=== PATIENT | male | born 1985 | race Asian ===

== ENCOUNTER 2017-02-14 10:22 | Day surgery (SDC) | payer OTHER ==
[2017-02-11 10:06] VITALS: BMI 27.4
[2017-02-14] MEDS ORDERED: DEXAMETHASONE SOD PHOSPHATE/PF 10 MG/ML SDV ONE (11:38)
[2017-02-14] MEDS ORDERED: MIDAZOLAM HCL 2 MG/2 ML SINGLE DOSE VIAL ONE ×2 (11:38→12:50)
[2017-02-14] MEDS ORDERED: ROPIVACAINE HCL 0.5% 30ML VIAL ONE (11:38)
[2017-02-14] MEDS ORDERED: PROPOFOL 20 ML ONE ×3 (13:03→15:21)
[2017-02-14] MEDS ORDERED: ONDANSETRON 4 MG/2 ML VIAL ONE ×2 (13:30→16:43)
[2017-02-14] MEDS ORDERED: ceFAZolin SODIUM 1 GM VIAL ONE (13:30)
[2017-02-14] MEDS ORDERED: DEXAMETHASONE SOD PHOSPHATE 4 MG/1 ML VIAL ONE (13:30)
[2017-02-14] MEDS ORDERED: METOPROLOL TARTRATE 5 MG/5 ML VIAL ONE (13:30)
[2017-02-14] MEDS ORDERED: ePHEDrine SULFATE 50 MG/1 ML AMPULE ONE ×2 (13:52→15:30)
[2017-02-14] MEDS ORDERED: ONDANSETRON 4 MG/2 ML VIAL IVPUSH PRN (16:13)
[2017-02-14] MEDS ORDERED: oxyCODONE HCL 5 MG TABLET PO PRN ×2 (16:13)
[2017-02-14] MEDS ORDERED: PROMETHAZINE HCL 25 MG/1 ML VIAL IVPUSH PRN (16:13)
[2017-02-14] MEDS ORDERED: ONDANSETRON 4 MG/2 ML VIAL IVPUSH ONE (16:48)
--- NOTE | 2017-02-14 16:52 | OP ---
Operative Note - Note: Operative Date: 02/14/17 Pre-Operative Diagnosis: Right shoulder superior labral anterior posterior tear with bankhart lesion and instability Operation: Right shoulder arthorscopic labral repair with remplissage Post-Operative Diagnosis: Same as Pre-op Surgeon: Sav Anne Distribution Tech: Yasmin Banks Anesthesia: MAC (with block) Estimated Blood Loss (mls): 50 Operative Report Dictated: Yes
--- NOTE | 2017-02-14 16:55 | SURG ---
Surgery Access Clerk Note Access Clerk: Yasmin Banks PA-C Date of Service: 02/14/17 Diagnosis: right shoulder labral tear with bankhart lesion Procedure: right shoulder arthroscopic labral repair with remplissage I was present for the entirety of the operative procedure. For further detail, please refer to operative report. Visit type - Case Type Case Type: Scheduled Admission - Emergency Emergency Visit: No - New patient This patient is new to me today: Yes Date on this admission: 02/14/17
[2017-02-14] MEDS ORDERED: oxyCODONE HCL 5 MG TABLET ONE (17:28)
[2017-02-14 18:27] VITALS: TEMP 97.8
[2017-02-14 18:35] VITALS: BP 130/76; PULSE 125
--- NOTE | 2017-02-14 18:51 | OP ---
DATE OF OPERATION: 02/14/2017 PREOPERATIVE DIAGNOSIS: Right shoulder instability, recurrent. POSTOPERATIVE DIAGNOSIS: Right shoulder instability, recurrent. PROCEDURE: Right shoulder arthroscopy with repair of superior labrum, repair of anterior and inferior labrum, remplissage procedure. SURGEON: Terrence Stover MD PROFESSOR OF SOCIOLOGY: LENIN Chung, whose skillful assistance was necessary for the safe and timely performance of this procedure. Ms. Banks was able to help steer the camera, help provide limb positioning, assist in suture passage and fixation, and insertion of orthopedic hardware. ANESTHESIA: Regional, plus general. POSTOPERATIVE CONDITION: Stable. COMPLICATIONS: None. IMPLANTS: Arthrex 2.9-mm PushLock anchors x5 and SutureTak x2. INDICATIONS: This is a pleasant gentleman who had been suffering for years of recurrent shoulder dislocation. MRI demonstrated findings of mild glenoid bone loss, Hill-Sachs lesion, anterior/inferior labral tear. Treatment options including nonoperative management versus operative management were discussed. Operative risks were reviewed in detail including bleeding, infection, neurovascular injury, need for further surgery, postoperative pain and stiffness, recurrent instability. We discussed medical risks such as heart attack, stroke, DVT, PE, and . I addressed all the patient's questions. He voiced understanding and elected to proceed. DESCRIPTION OF PROCEDURE: The patient was brought to the operating room after administration of a regional block in the preoperative holding area. He was placed in the beach chair position, careful to pad all his bony prominences. General anesthesia was administered with LMA. The right upper extremity was then examined. There was positive anterior load and shift. Negative sulcus sign. No posterior instability. There was full range of motion. Right upper extremity was now prepped and draped in the usual sterile fashion. A preoperative dose of antibiotics was given, and the usual timeout procedure was performed. The portal sites were now marked out on the skin. The standard posterior portal was now incised with an 11 blade. The arthroscope was passed into the glenohumeral joint. Examination of the glenohumeral joint demonstrated some fraying of the cartilage surfaces on both the glenoid and humeral sides. The entire anterior labrum as nonvisualized. There was some significant fraying at the junction of the anterior labrum and the inferior labrum. The arthroscope was passed anteriorly. The subscapularis was visualized. This was intact. The biceps was visualized. This was intact without signs of tendinosis. The arthroscope was now passed back along the rotator cuff which seemed to be intact with only some mild superficial fraying. The arthroscope then fell into the Hill-Sachs defect which was significant. The arm was then passed into a position of adduction and external rotation, and the Hill-Sachs defect was seen to engage with the glenoid. The arthroscope was now brought back into the central portion of the joint. The inferior and posterior labrum was inspected, and this was seen to be stable. An anterior inferior portal was now established under spinal needle localization just proximal to the subscapularis tendon. A cannula was placed. The superior labrum was probed, and this was found to be unstable as well. The decision at this point was made to perform both an anterior-inferiorly , SLAP repair, and given the engaging Hill-Sachs lesion, a remplissage procedure. Attention was initially turned to the anterior glenoid. Utilizing an arthroscopic elevator, the anterior tissue including the capsule and labrum was freed from the anterior, inferior, and superior aspect of the glenoid rim. Utilizing a rasp as well as a 4.5-mm shaver, the bone around the glenoid was debrided down to a bleeding base. The debridement was carried out all the way from the mid-portion of the superior labrum down to the 5:30 position. With the tissue adequately liberated, a 90-degree suture passer was used to pass multiple sutures in horizontal mattress fashion from the inferior aspect utilizing the first retraction stitch and then getting it further on the inferior tissue. After the second suture was passed, these were parked in the cannula. Attention was now turned to the Hill-Sachs lesion. A second posterolateral portal was now established. This was done under spinal needle localization as well. Utilizing a shaver, as well as a bur and rasp, the Hill-Sachs was debrided down to cancellous bone. Cannula was placed in the posterolateral portal. This was placed into the subacromial space and not into the joint. Utilizing percutaneous technique, a spinal needle was used to localize. An anchor was then inserted into the most-deep portion of the defect. Sutures were retrieved out of the cannula. A second anchor was then drilled, maintaining the arm in position of maximal internal rotation, therefore light penetration to the joint surface, and an anchor was placed just lateral to the articular surface in the Hill-Sachs defect. The anchor was confirmed not to violate the articular surface. The sutures were left parked in the posterolateral cannula. Attention was now turned back anteriorly. A second cannula was placed superiorly, anteriorly under spinal needle localization to aid in suture passing. At this point, the drill was used to create a socket on the most-inferior portion of the glenoid. The sutures from the previously-passed stitch were then placed into the anchor and malleted into place, securing the labrum inferiorly. This was repeated again with the second previously-passed suture. The remainder of the labrum was then secured in the same fashion by passing sutures and then securing them with anchors 2 more times to secure the entire anterior labrum. Given that the superior labrum was still unstable, a final repair was made to the superior labrum. A suture was passed around the superior labrum just anterior to the biceps attachment. A final anchor was drilled into the superior aspect of the glenoid, and the suture was cinched down, careful to avoid overtensioning the superior labrum. The entire construct was now examined visually. It was probed as well and found to be stable. Anterior shuck demonstrated increased stability to the joint. Attention was then turned back to the Hill-Sachs. Utilizing a romeo-type technique, the sutures from the anterior and posterior cannulas were tied together blindly in the subacromial space. Romeo technique was then used to cinch down the infraspinatus into the defect which was visualized fluoroscopically. The second sutures were then tied arthroscopically, completing the repair. At this point, the camera was withdrawn from the joint. The portals were sutured using 2-0 Vicryl as well as 3-0 nylon. Sterile dressings were placed. The patient was placed in a sling. He was extubated and transferred to recovery room in stable condition. TERRENCE STOVER M.D. [id number]
== END 2017-02-14 18:10 | disposition home or self-care (01) ==
LOC: FASU 10:22
PROVIDERS: ATTEND Orthopaedic Surgery Sports Medicine
PROC: 0MM14ZZ Reattachment of Right Shoulder Bursa and Ligament, Percutaneous Endoscopic Approach (ICD-10-PCS; 2017-02-14)
PROC: 0RQK4ZZ Repair Left Shoulder Joint, Percutaneous Endoscopic Approach (ICD-10-PCS; principal; 2017-02-14 13:49)
DX: M24.411 Recurrent dislocation, right shoulder (principal); M25.311 Other instability, right shoulder; S43.431A Superior glenoid labrum lesion of right shoulder, initial encounter; X58.XXXA Exposure to other specified factors, initial encounter; Y93.9 Activity, unspecified; Y92.9 Unspecified place or not applicable
CPT/HCPCS: 94760

== ENCOUNTER 2017-06-13 07:43 | Day surgery (SDC) | payer OTHER ==
[2017-06-10 13:34] VITALS: BMI 25.8
[2017-06-13] MEDS ORDERED: PROPOFOL 20 ML ONE ×7 (08:09→08:14)
[2017-06-13] MEDS ORDERED: SUCCINYLCHOLINE CHLORIDE 200 MG/10 ML VIAL ONE (08:12)
[2017-06-13] MEDS ORDERED: LIDOCAINE HCL/PF 2% SDV 5ML VIAL ONE (08:13)
[2017-06-13] MEDS ORDERED: ONDANSETRON 4 MG/2 ML VIAL ONE (08:13)
[2017-06-13] MEDS ORDERED: ceFAZolin SODIUM 1 GM VIAL ONE (08:13)
[2017-06-13] MEDS ORDERED: PHENYLEPHRINE HCL 10 MG/1 ML SINGLE DOSE VIAL ONE (08:13)
[2017-06-13] MEDS ORDERED: ePHEDrine SULFATE 50 MG/1 ML AMPULE ONE (08:14)
[2017-06-13] MEDS ORDERED: DESFLURANE GAS 240 ML BOTTLE IH ONE (08:28)
[2017-06-13] MEDS ORDERED: BUPIVACAINE HCL/PF 0.5% (5MG/ML) 10 ML VIAL ONE (08:28)
[2017-06-13] MEDS ORDERED: SODIUM CHLORIDE 0.9% P/F 10 ML VIAL IJ ONE (08:31)
[2017-06-13] MEDS ORDERED: EPINEPHrine 1:1,000 1 MG/1 ML - 30ML VIAL (INJECTION) ONE (08:44)
[2017-06-13] MEDS ORDERED: MIDAZOLAM HCL 2 MG/2 ML SINGLE DOSE VIAL ONE (08:50)
[2017-06-13] MEDS ORDERED: ROPIVACAINE HCL 0.5% 30ML VIAL ONE (08:56)
[2017-06-13] MEDS ORDERED: DEXAMETHASONE SOD PHOSPHATE/PF 10 MG/ML SDV ONE (08:56)
--- NOTE | 2017-06-13 09:43 | HP ---
History & Physical Update - History History: No Change - Physical Physical: No Change - Assessment Assessment: No Change - Plan Plan: No Change
[2017-06-13] MEDS ORDERED: PROMETHAZINE HCL 25 MG/1 ML VIAL IVPB PRN (13:29)
[2017-06-13] MEDS ORDERED: ONDANSETRON 4 MG/2 ML VIAL IVPUSH PRN (13:29)
[2017-06-13] MEDS ORDERED: oxyCODONE HCL 5 MG TABLET PO PRN ×2 (13:29→17:53)
[2017-06-13] MEDS ORDERED: LACTATED RINGERS SOLUTION 1,000 ML IV SCH (13:30)
--- NOTE | 2017-06-13 13:37 | OP ---
Operative Note - Note: Operative Date: 06/13/17 Pre-Operative Diagnosis: Right ACL rupture, medial and lateral meniscus tears Operation: Right ACL reconstruction with bone tendon bone autograft, medial and lateral meniscectomy Post-Operative Diagnosis: Same as Pre-op Surgeon: Sav Anne Curve Saw Operator: Yasmin Banks Anesthesiologist/ELECTRICAL MAINTENANCE TECHNICIAN: Walter Hawkins Anesthesia: Spinal, Local, MAC Specimens Removed: Partial medial and lateral meniscectomy Estimated Blood Loss (mls): 20 Fluid Volume Replaced (mls): 1,600 Operative Report Dictated: Yes
--- NOTE | 2017-06-13 13:39 | SURG ---
Surgery Singer Songwriter Note Singer Songwriter: Yasmin Banks PA-C Date of Service: 06/13/17 Diagnosis: Right knee acl rupture, medial and lateral meniscus tears Procedure: Right knee ACL reconstruction with Bone tendon bone autograft, partial medial and lateral meniscectomy I was present for the entirety of the operative procedure. For further detail, please refer to operative report. Visit type - Case Type Case Type: Scheduled Admission - Emergency Emergency Visit: No - New patient This patient is new to me today: Yes Date on this admission: 06/13/17
--- NOTE | 2017-06-13 14:20 | OP ---
DATE OF OPERATION: 06/13/2017 PREOPERATIVE DIAGNOSIS: Right knee anterior cruciate ligament rupture. POSTOPERATIVE DIAGNOSIS: Right knee anterior cruciate ligament rupture plus medial/lateral meniscal tears. PROCEDURE: Right knee arthroscopy with partial medial, partial lateral meniscectomy, anterior cruciate ligament reconstruction utilizing patella tendon autograft. ANESTHESIA: General. POSTOPERATIVE CONDITION: Stable. COMPLICATIONS: None. BLOOD LOSS: 30 mL. TOURNIQUET TIME: Two hours 5 minutes. IMPLANTS: Arthrex TightRope x2 plus 4.5-mm screw from the Mitek soft tissue screw fixation site. INDICATIONS: This is a pleasant gentleman who suffered an ACL injury years ago. He had been having persistent instability but was unable to obtain medical care during that time. He came to the office seeking treatment. He was unable to play sports. 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 His meniscus also appeared abnormal. Treatment options including continued nonoperative versus operative care were discussed. Operative risks were reviewed in detail including bleeding, infection, neurovascular injury, need for further surgery, postoperative pain and stiffness, persistent instability, graft rupture or failure, medical risks such as heart attack, stroke, DVT, PE, . We discussed the use of perioperative antibiotic as well as DVT prophylaxis. I addressed all of the patient's questions. He voiced understanding and elected to proceed. DESCRIPTION OF PROCEDURE: The patient was brought to the operating room where spinal anesthesia was administered. The preoperative block had been applied in the holding area. The right lower extremity was then prepped and draped in the usual sterile fashion. A preoperative dose of antibiotics was given, and the usual time-out procedure was performed. A preoperative examination demonstrated full-length erosion, mild effusion, slight laxity of the MCL 1+, grossly positive Cirilo and pivot shift, stable PCL, stable LCL, and stable dial test. He did hyperextend by about 5 degrees. The arthroscope was now going to be inserted through the knee. A small stab wound was made at the anterolateral portal site. The arthroscope was passed into the knee. Examination of the patellofemoral joint demonstrated no abnormalities. Passing the arthroscope down into the notch demonstrated a complete rupture of the ACL with an empty lateral wall. With the ACL rupture confirmed, the menisci were examined and demonstrated abnormal contour of both the medial and lateral meniscus suspicious for tear. The decision at this point was made to perform a tear reconstruction. The arthroscope was withdrawn from the knee. The limb was exsanguinated. Tourniquet was inflated to 250 mmHg. Incision was planned out anteriorly over the patella tendon. This was carried down through skin and subcutaneous tissue. Blunt spreading was used to close the paratenon. The paratenon was then split in line with its fibers exposing the patellar tendon. It was somewhat adherent to the patellar tendon. A catamaran blade, which was 10 mm in width was now slid down from the patella along the tendon and to the tibial insertion. Bone blocks were now marked out 25 mm x 10 mm from each side. The extent of the bone block was then defined using a 15 blade. An oscillating saw was now used to create the two bone blocks beveling the edges to allow for graft removal. The osteotome was then used to remove the bone blocks from both sides, and any remaining soft tissue adhesions were removed with the 15 blade. The tendon was now prepared on the back table to 2 drill holes in each end and each block made to fit well within a size 10 tunnel. The femoral side was delivered onto a TightRope as was the tibial side. Concurrently, the arthroscope was passed back to the knee. Examination of the medial meniscus demonstrated abnormal contour, which looked like there was an old flap tear, which had somewhat filled in in a flipped position. Some of the frayed edges in this portion of the body were debrided using the shaver. The posterior horn was probed and found to be stable, again, with abnormal, rounded contour. There was fissuring of the cartilage on both the femoral and tibial surfaces. The arthroscope was then passed into the lateral compartment. Here there was a tear of the inner portion of the body of the lateral meniscus. Again, this was debrided using the shaver. The posterior horn and the anterior horn were examined, and no instability or tears were noted. Also noted on the lateral side was fissuring of the cartilage. The arthroscope was now passed back into the notch. The remnant of the ACL was debrided. It was significantly scarred into the PCL. A small notchplasty was performed in order to allow for proper tunnel positioning. The femoral joint guide was now inserted utilizing the lateral portal and a camera through the medial portal. It was centered on the anatomic origin of the ACL. FlipCutter was inserted through a small incision distally in the femur, and the trocar was inserted down to the level of the bone. The cutter was now drilled in creating a 30-mm socket x 10-mm socket on the femoral side. Passing suture was placed. Given that the graft was too short for a GraftLink construct, it was decided to use the graft in its full length. Given that it might be too long for an , I decided to make a full tibial tunnel. Utilizing the tibial guide, it was placed into the anatomic footprint here as well. A small incision was made medial to the harvest incision and distal to the harvest incision for the operative trocar to be placed down to the bone. The FlipCutter was now drilled in, placement was confirmed, and a 50-mm x 10-mm socket was created on this side. After creating a new socket, the flip cutter was withdrawn from a bone creating a partial full tunnel. A 10-mm reamer was now placed on hand, and this was used to open up the aperture to allow the graft to be passed. The sutures were now passed through the tibial tunnel that had been previously passed through the femur. The graft was now loaded onto the sutures, and the sutures were passed through both tunnels. The TightRope was visualized directly through the medial portal to be seated on the femoral cortex. The graft was now toggled into the joint seating it entirely into the femoral socket. The tibial site did remain within the tunnel allowing for use of suture fixation on this side as well. The button was loaded onto the TightRope. The knee was cycled 10 times. The knee was then placed into position of full extension. The graft was now tightened. It was noted that the button was sliding up to the top of the aperture and providing a little bit of play. The decision, therefore, was made to provide backup fixation. At the lower portion of the insertion, a 3.5-mm drill hole was made cortically. The hole was then tapped on the near cortex. The 4.5 screw was then inserted. The exit sutures were now tied over the post removing any flay from the system. The screw was now inserted down in its entirety. At this point, the entire construct was examined. There was good stability on physical exam. The graft appeared copacetic on arthroscopic exam. The keep tissues were now approximated using 0 Vicryl. The subcutaneous tissue was approximated using 2-0 Vicryl. The skin was closed using 3-0 nylon. It should be noted that the tourniquet was left down during the final portion of the graft fixation. The patient was then transferred to the recovery room after placing a sterile dressing in stable condition. TERRENCE STOVER M.D. [id number]
[2017-06-13] MEDS ORDERED: ONDANSETRON 4 MG/2 ML VIAL IVPUSH ONE (14:45)
[2017-06-13 16:08] VITALS: TEMP 97.5
[2017-06-13] MEDS ORDERED: oxyCODONE HCL 5 MG TABLET ONE (17:49)
[2017-06-13 18:53] VITALS: BP 143/92; PULSE 96
== END 2017-06-13 18:54 | disposition home or self-care (01) ==
LOC: FASU 07:43
PROVIDERS: ATTEND Orthopaedic Surgery Sports Medicine
PROC: 0SBC4ZZ Excision of Right Knee Joint, Percutaneous Endoscopic Approach (ICD-10-PCS; 2017-06-13)
PROC: 0SBC4ZZ Excision of Right Knee Joint, Percutaneous Endoscopic Approach (ICD-10-PCS; 2017-06-13)
PROC: 0MRN47Z Replacement of Right Knee Bursa and Ligament with Autologous Tissue Substitute, Percutaneous Endoscopic Approach (ICD-10-PCS; principal; 2017-06-13 10:18)
DX: S83.511A Sprain of anterior cruciate ligament of right knee, initial encounter (principal); S83.241A Other tear of medial meniscus, current injury, right knee, initial encounter; S83.281A Other tear of lateral meniscus, current injury, right knee, initial encounter; X58.XXXA Exposure to other specified factors, initial encounter; Y93.9 Activity, unspecified; Y92.9 Unspecified place or not applicable
CPT/HCPCS: 94760

== ENCOUNTER 2019-06-15 13:50 | Emergency (ER) | payer OTHER ==
[2019-06-15 15:00] VITALS: BP 120/80; PULSE 104; TEMP 98.1; BMI 26.6
--- NOTE | 2019-06-15 16:36 | PDOC ---
Documentation entered by Kalpana Pink SCRIBE, acting as scribe for Kristopher Petty MD. Kristopher Petty MD: This documentation has been prepared by the Apryl nieves Nirvannie, SCRIBE, under my direction and personally reviewed by me in its entirety. I confirm that the documentation accurately reflects all work, treatment, procedures, and medical decision making performed by me. History of Present Illness - General Chief Complaint: Injury Stated Complaint: L ANKLE INJURY, R SHOULDER PAIN Time Seen by Provider: 06/15/19 14:09 History Source: Patient Exam Limitations: No Limitations - History of Present Illness Initial Comments: 06/15/19 14:59 The patient is a 33 year old male, with a significant past medical history of right shoulder surgery, who presents to the emergency department s/p mechanical fall yesterday with 2 days of left ankle pain and right shoulder pain. 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 He was able to ambulate with pain after the fall and endorses pain, swelling, and minimal bruising to the ankle. Patient endorses mild right shoulder pain but, notes normal range of motion. He denies any LOC, seizures, or head/neck trauma. He denies any focal changes in strength/sensation. He denies any recent chest pain or shortness of breath. He denies any recent fevers, chills, headache or dizziness. Allergies: NKDA Past surgical history: Right ACL reconstruction with bone tendon bone autograft , medial and lateral meniscectomy Social History: Smoker. Primary Care Physician: Dr. Martinez Past History - Past Medical History Allergies/Adverse Reactions: Allergies Allergy/AdvReac Type Severity Reaction Status Date / Time No Known Drug Allergies Allergy Verified 06/15/19 14:53 Home Medications: Ambulatory Orders Amitriptyline HCl [Elavil -] 75 mg PO HS 06/15/19 Dextroamphetamine/Amphetamine [Adderall Xr 25 mg Capsule] 25 mg PO DAILY Anemia: No Asthma: No Cancer: No Cardiac Disorders: No CVA: No COPD: No CHF: No Dementia: No Diabetes: No GI Disorders: No Disorders: No HTN: No Hypercholesterolemia: No Liver Disease: No Seizures: Yes (had one seizure 4 yrs ago-possible dehydration-negative work up) Thyroid Disease: No - Surgical History Abdominal Surgery: No Appendectomy: No Cardiac Surgery: No Cholecystectomy: No Lung Surgery: No Neurologic Surgery: No Orthopedic Surgery: Yes (03/05 RIGHT SHOULDER SURGERY) - Psycho Social/Smoking Cessation Hx Smoking Status: Yes Smoking History: Current every day smoker Have you smoked in the past 12 months: Yes Number of Cigarettes Smoked Daily: 4 'Breaking Loose' booklet given: 02/11/17 Hx Alcohol Use: No Drug/Substance Use Hx: No Substance Use Type: None Hx Substance Use Treatment: No Review of Systems - Review of Systems Able to Perform ROS?: Yes Comments:: 06/15/19 14:59 MUSCULOSKELETAL: Present: Left ankle pain. Right shoulder pain. No reported: Back pain, Neck Pain NEUROLOGIC: No reported: Headache, Focal Weakness, Paresthesias, Vertigo, All Other Systems: Reviewed and Negative *Physical Exam - Physical Exam 06/15/19 14:50 GENERAL: The patient is awake, alert, and fully oriented, Nontoxic - in no acute distress. HEAD: Normocephalic, atraumatic. EYES: extraocular movements intact, sclera anicteric, conjunctiva clear. ENT: Normal voice, Moist mucous membranes. NECK: Normal range of motion, supple, No focal bony tenderness in the cervical, thoracic, lumbar spine RUE: Normal range of motion of his R shoulder, Minimal tenderness in the superior aspect of the shoulder, No focal bony tenderness. Neural vascularly intact distally. LLE: Normal range of motion of hip.knees, Mild tenderness to the lateral aspect of the ankle/foot at the deltoid ligament, and at the base 5th metatarsal ecchymosis and edema on the latearl aspect of L ankle. pain on passive range of motion. Sensation intact, pulses intact, Procedures - Consent Consent obtained: Verbal - Splinting Splint Location: Left: Foot Pre-Proc Neuro Vasc Exam: normal Hand-Made Type: orthoglass Splint Type: Yes: Posterior Post-Proc Neuro Vasc Exam: normal Efren Bandage: 4" Post splint xray: No Good repositioning: Yes ED Treatment Course - RADIOLOGY Radiology Studies Ordered: Category Date Time Status ANKLE & FOOT-LEFT* [RAD] Stat Radiology 06/15/19 14:47 Ordered Medical Decision Making - Medical Decision Making 06/15/19 14:52 Suspect possible ankle sprain, will obtain x-ray to screen for fracture. No focal bony tenderness to suggest Fracture dislocation of his shoulder. Patient does have some pain with certain movements suspect possible strain. Will recommend supportive care and follow-up with orthopedics, will defer further imaging at this time. Patient declines any pain medicines 06/15/19 15:51 xray noted for nondisplaced fractrue at base of 5th metatarsal - will place pt in a posterior splint. will refer to orthopedics for further management. nwb, earle Discharge - Discharge Information Problems reviewed: Yes Clinical Impression/Diagnosis: Fracture of 5th metatarsal Qualifiers: Encounter type: initial encounter Fracture type: closed Fracture alignment: nondisplaced Laterality: left Qualified Code(s): S92.355A - Nondisplaced fracture of fifth metatarsal bone, left foot, initial encounter for closed fracture Condition: Good Disposition: HOME - Admission No - Follow up/Referral Referrals: Amina Greenwood [Primary Care Provider] - Sav Anne MD [Staff Physician] - - Patient Discharge Instructions Patient Printed Discharge Instructions: DI for Foot Fracture Additional Instructions: Return to the emergency department immediately with ANY new, persistent or worsening symptoms. You have a fracture in your left foot, Use the splint and do not remove it. Do not put weight on your foot. Follow-up with orthopedics for further evaluation. You MUST call and follow up with your orthopedics doctor in 2-3 days for further evaluation of your symptoms. Results were discussed with you. Please make sure your doctor reviews the results of your emergency evaluation. Your Emergency Department visit is not complete without a follow up with your doctor. Print Language: HAITIAN - Post Discharge Activity
== END 2019-06-15 16:45 | disposition home or self-care (01) ==
LOC: FER 13:50
PROC: 2W3RX1Z Immobilization of Left Lower Leg using Splint (ICD-10-PCS; principal; 2019-06-15)
DX: S92.355A Nondisplaced fracture of fifth metatarsal bone, left foot, initial encounter for closed fracture (principal); W18.39XA Other fall on same level, initial encounter; Y93.89 Activity, other specified; Y92.89 Other specified places as the place of occurrence of the external cause
CPT/HCPCS: 73610-TC-LT-FY; 73630-TC-LT; 99282-25

== ENCOUNTER 2022-02-01 16:00 | Emergency (ER) | payer OTHER ==
[2022-02-01 16:03] VITALS: BP 145/88; PULSE 54; RESP 18; TEMP 97.8; BMI 25.7
== END 2022-02-01 17:14 | disposition home or self-care (01) ==
LOC: JER 16:00
DX: F11.90 Opioid use, unspecified, uncomplicated (principal)
CPT/HCPCS: 82962; 99283-25

== ENCOUNTER 2024-11-20 14:43 | Emergency (ER) | payer OTHER ==
[2024-11-20 14:52] VITALS: BP 142/97; PULSE 101; RESP 18; TEMP 98.8; BMI 21.9
== END 2024-11-20 16:49 | disposition home or self-care (01) ==
LOC: FER 14:43
DX: S46.912A Strain of unspecified muscle, fascia and tendon at shoulder and upper arm level, left arm, initial encounter (principal); W18.30XA Fall on same level, unspecified, initial encounter; Y93.01 Activity, walking, marching and hiking
CPT/HCPCS: 73030-TC-LT-FY; 99283-25